=== PATIENT | female | born 1975 | race Caucasian/White ===

== ENCOUNTER → 2016-09-11 | Outpatient (CLI) | payer OTHER ==
--- NOTE | 2016-09-13 13:15 | MM ---
Reason for exam: screening (asymptomatic). Last mammogram was performed 1 year ago. Physical Findings: A clinical breast exam by your physician is recommended on an annual basis and results should be correlated with mammographic findings. MG 3D Screening Mammo W/Cad Bilateral CC and MLO view(s) were taken. Prior study comparison: September 15, 2015, bilateral MG screening mammo w CAD. October 23, 2012, bilateral digital screening mammo w/CAD. The breast tissue is heterogeneously dense. This may lower the sensitivity of mammography. No significant changes when compared with prior studies. ASSESSMENT: Negative, BI-RAD 1 RECOMMENDATION: Routine screening mammogram of both breasts in 1 year.
== END | disposition home or self-care (01) ==
LOC: RADMAMWWP 16:59
PROVIDERS: ATTEND Family Medicine
DX: Z12.31 Encounter for screening mammogram for malignant neoplasm of breast (principal)
CPT/HCPCS: 77063; G0202

== ENCOUNTER → 2017-10-20 | Outpatient (CLI) | payer OTHER ==
--- NOTE | 2017-10-20 14:40 | MM ---
Reason for exam: screening (asymptomatic). Last mammogram was performed 1 year and 1 month ago. Physical Findings: A clinical breast exam by your physician is recommended on an annual basis and results should be correlated with mammographic findings. MG 3D Screening Mammo W/Cad Bilateral CC and MLO view(s) were taken. Prior study comparison: September 11, 2016, bilateral MG 3d screening mammo w/cad. September 15, 2015, bilateral MG screening mammo w CAD. The breast tissue is heterogeneously dense. This may lower the sensitivity of mammography. There are typically benign round calcifications in both breasts. There is no discrete abnormality. ASSESSMENT: Benign, BI-RAD 2 RECOMMENDATION: Routine screening mammogram of both breasts in 1 year.
== END | disposition home or self-care (01) ==
LOC: RADMAMWWP 08:52
PROVIDERS: ATTEND Family Medicine
DX: Z12.31 Encounter for screening mammogram for malignant neoplasm of breast (principal)
CPT/HCPCS: 77063; 77067

== ENCOUNTER → 2017-12-04 | Outpatient (CLI) | payer OTHER ==
--- NOTE | 2017-12-04 14:34 | CONS ---
CONSULTATION DATE OF SERVICE: 12/04/2017 42-year-old lady has been evaluated in Sleep Center for significant excessive daytime sleepiness. HISTORY OF PRESENT ILLNESS/SLEEP WAKE EVALUATION: SLEEP SCHEDULE: Patient's usual sleep schedule on working days from 10 p.m. to 6, 6:15 a.m. and on weekends from around 11 p.m. until 8 a.m. FALLING ASLEEP: Sometimes it takes more than 30 minutes for patient to fall asleep. She has TV set in bedroom. DURING SLEEP: She prefers to sleep on the stomach position. In that position, according to her , she does not snore. Sometimes while taking naps, the patient remembers having snoring. The patient has positive history of restless leg symptoms. DURING THE DAY SLEEP/WAKE EVALUATION: She has several episodes of hypnogogical hallucinations and often episodes of sleep of paralysis, especially during naps. Positive history of vivid dreams during naps. No history of cataplexy. Usually she is taking 1-2 naps a day during and afternoon time and does not feel much refreshed after naps. [place] Sleepiness Scale significantly increased to 16. PAST MEDICAL HISTORY: Positive for Graves disease with hysterectomy and subsequent hypothyroidism, hypertension. MEDICATIONS: Aspirin, metoprolol, lisinopril, thyroxine. SOCIAL HISTORY: Positive for smoking for about 20 pack years, quit about 3 years ago. Alcohol consumption rarely. FAMILY HISTORY: Sleep apnea, acid reflux, diabetes, thyroid problems. REVIEW OF SYSTEMS: Multiple awakenings from sleep up to 2-5 times with up to 2 episodes of nocturia. PHYSICAL EXAM: 42-year-old lady without distress. BP 116/49, HR 72, RR 16, height weight 170.6, BMI 27.41, temperature 98.0, oxygen saturation room air 100%. HEENT: Oropharynx normal position of soft palate vertically, but short distance between soft palate and posterior pharyngeal wall. Neck 14 inches in circumference. Neck Supple, no JVD. Thyroid is not palpable. LUNGS Clear to percussion and to auscultation. Good air exchange. No wheezing or rhonchi. HEART S1, S2 regular. No murmurs, gallops, or rubs. ABDOMEN Soft and nontender. Bowel sounds are present. No organomegaly appreciated. EXTREMITIES No clubbing or cyanosis. PULVERIZER OPERATOR Awake, alert, and oriented X3. Cranial nerves 2 to 7 intact. There is no fasciculation or atrophy. noted. No focal deficits observed. IMPRESSION: 1. Significant excessive daytime sleepiness. [place] Sleepiness Scale increased to 16. Vivid dreams, positive history of hypnagogic hallucinations and sleep of paralysis. Differential diagnosis includes narcolepsy. 2. Short distance between soft palate and posterior pharyngeal wall although normal position of the soft palate in vertical dimension. Rule out obstructive sleep apnea. 3. History of restless legs syndrome. 4. Hypertension. 5. Hypothyroidism after thyroidectomy for Grave's disease. PLAN: 1. Polysomnography with the following multiple sleep latency test for objective evaluation for symptoms of excessive daytime sleepiness. 2. CPAP/BiPAP titration if sleep study confirms obstructive sleep apnea-hypopnea syndrome. 3. Preferable position during sleep on the side. 4. No driving if patient feels any sleepiness. 5. I will see patient for follow up visit to explain results of testing and following plan. Thank you very much for referring this patient for consultation. Sincerely, Alek Ramirez MD, PhD, FAASM Diplomat of [employer] Silo Man [facility] [place] MMODL / IJN: [id number] /
== END | disposition home or self-care (01) ==
LOC: SLEEP 13:08
PROVIDERS: ATTEND Internal Medicine
DX: G47.10 Hypersomnia, unspecified (principal); R44.2 Other hallucinations; G25.81 Restless legs syndrome; I10 Essential (primary) hypertension; E89.0 Postprocedural hypothyroidism; E05.00 Thyrotoxicosis with diffuse goiter without thyrotoxic crisis or storm; Z87.891 Personal history of nicotine dependence; Z79.899 Other long term (current) drug therapy; Z79.82 Long term (current) use of aspirin
CPT/HCPCS: 99211

== ENCOUNTER → 2018-02-19 | Outpatient (CLI) | payer OTHER ==
--- NOTE | 2018-02-19 19:27 | PN ---
PROGRESS NOTE DATE OF SERVICE: 02/19/2018 42-year-old lady has been followed in Sleep Center to discuss results of sleep studies and following plan. The patient continued to feel symptoms of significant excessive daytime sleepiness. [place] Sleepiness Scale today is increased to 17. I discussed with the patient results of recent sleep studies. Polysomnogram did not show any significant respiratory abnormalities. Total apnea-hypopnea index was 1.9 with lowest oxygen level 89.4. No periodic limb movements have been documented. The patient slept for that night for 6 hours and 23 minutes. Multiple sleep latency test done on the following day consisted from 5 naps. The patient fell asleep on all naps. Mean sleep latency was 6.4 minutes, which is significantly short. No sleep onset REM periods have been documented. MEDICATIONS: Metoprolol, lisinopril, thyroxine, aspirin. PHYSICAL EXAM: Patient in no distress. BP 108/58, HR 64, RR 14, weight 177.6, temperature 98.1. HEENT PERRLA, EOMI, evaluation of oropharynx showed tongue protrudes midline. Neck Supple, no JVD. Thyroid is not palpable. LUNGS Clear to percussion and to auscultation. Good air exchange. No wheezing or rhonchi. HEART S1, S2 regular. No murmurs, gallops, or rubs. ABDOMEN Soft and nontender. Bowel sounds are present. No organomegaly appreciated. EXTREMITIES No clubbing or cyanosis. DIRECTOR OF GRANTS Awake, alert, and oriented X3. Cranial nerves 2 to 7 intact. There is no fasciculation or atrophy. noted. No focal deficits observed. IMPRESSION: 1. No significant respiratory abnormalities during sleep studies. 2. Multiple sleep latency test confirmed sleepiness. Mean sleep latency only 6.4 minutes. No sleep onset REM periods have been documented. Differential diagnosis includes narcolepsy and idiopathic hypersomnia, positive history of occasional hypnagogical hallucinations so most reliable is diagnosis of narcolepsy. 3. History of heart attack at age of 26. 4. Status post thyroidectomy for Graves disease. Now patient on replacement with thyroid hormone medications. PLAN: 1. I discussed with the patient possibility to start her on stimulants. I would suggest the lowest dose of methylphenidate like 5 mg 1-2 times a day. 2. Patient will discuss that with her manufacturing area manager. 3. Sleep hygiene with regular time in bed for at least 8 hours. 4. No driving if feeling sleepiness. Thank you very much for allowing me to participate in management of your patient. Sincerely, Alek Ramirez MD, PhD, FAASM Diplomat of [employer] Medicine Supervisor [place] [facility] [place] XAVIER / LISA: [id number] /
== END | disposition home or self-care (01) ==
LOC: SLEEP 16:34
PROVIDERS: ATTEND Internal Medicine
DX: G47.10 Hypersomnia, unspecified (principal); I25.2 Old myocardial infarction; E05.00 Thyrotoxicosis with diffuse goiter without thyrotoxic crisis or storm; Z90.89 Acquired absence of other organs; Z79.899 Other long term (current) drug therapy; Z79.82 Long term (current) use of aspirin

== ENCOUNTER → 2018-05-14 | Outpatient (CLI) | payer OTHER ==
--- NOTE | 2018-05-14 17:34 | PN ---
PROGRESS NOTE DATE OF SERVICE: 05/14/2018 42-year-old lady has been followed in Sleep Center for treatment of narcolepsy. She was started on treatment with Ritalin 5 mg 2 times a day. On this dose of medication, she did not feel any difference in her feeling at all, continued to have sleepiness. We tried 10 mg of Ritalin in the morning. With this dose, the patient did not feel any difference during the day, the patient continued sleepiness after taking medication and at lunch time she is ready to take for another nap. No side effects. No increasing heart rate. No increasing blood pressure. [place] Sleepiness Scale today is 17. MEDICATIONS: Metoprolol, lisinopril, thyroxine, aspirin. PHYSICAL EXAM: Patient in no distress. BP 95/63, HR 73, RR 16, height 5 feet 6 inches, weight 179.8, body mass index 29.0, temperature 97.8, oxygen saturation at room air 98%. HEENT: PERRLA, EOMI, evaluation of oropharynx showed tongue protrudes midline. NECK :Supple, no JVD. Thyroid is not palpable. LUNGS: Clear to percussion and to auscultation. Good air exchange. No wheezing or rhonchi. HEART: S1, S2 regular. No murmurs, gallops, or rubs. ABDOMEN: Soft and nontender. Bowel sounds are present. No organomegaly appreciated. EXTREMITIES: No clubbing or cyanosis. DEAN OF BOYS: Awake, alert, and oriented X3. Cranial nerves 2 to 7 intact. There is no fasciculation or atrophy. noted. No focal deficits observed. IMPRESSION: 1. Narcolepsy. 2. History of heart attack at age 26. 3. Status post thyroidectomy for Grave' disease. The patient on thyroid medication replacements. PLAN: 1. Patient will try Ritalin 15 mg in the morning to check if she responds on this dose. 2. Sleep hygiene with regular time in bed for at least 8 hours. 3. No driving if feeling sleepiness. 4. Daytime naps permitted. Thank you very much for allowing me to participate in management of your patient. Sincerely, Alek Ramirez MD, PhD, FAASM Diplomat of [employer] Board of Internal Medicine Export Documents Clerk of [facility] [place] MMODL / RENETTAN: [id number] /
== END ==
LOC: SLEEP 16:03
PROVIDERS: ATTEND Internal Medicine
DX: G47.419 Narcolepsy without cataplexy (principal); E89.0 Postprocedural hypothyroidism; I50.9 Heart failure, unspecified; Z79.899 Other long term (current) drug therapy; Z79.82 Long term (current) use of aspirin

== ENCOUNTER → 2018-07-23 | Outpatient (CLI) | payer OTHER ==
--- NOTE | 2018-07-23 17:43 | PN ---
PROGRESS NOTE DATE OF SERVICE: 07/23/2018 This patient is a 42-year-old lady who has been followed in Sleep Center for treatment of narcolepsy. At present the patient is on treatment with Ritalin 15 mg in the morning, and with this regimen the patient feels better, more alert, especially in the first half of the day. During the second part of the day she still feels sleepiness. [place] Sleepiness Scale today is 12. No side effects of medications. No tachycardia. No episodes of anxiety. MEDICATIONS: 1. Metoprolol. 2. Lisinopril. 3. Thyroxine. 4. Aspirin. 5. Ritalin. PHYSICAL EXAMINATION: GENERAL: A pleasant patient in no distress. VITAL SIGNS: BP 108/63, HR 65, RR 16, height 5 feet 6 inches, weight 174.4 pounds, body mass index 28, temperature 98.5, oxygen saturation at room air 100%. HEENT: PERRLA, EOMI. Evaluation of oropharynx showed tongue protrudes midline. NECK: Supple. No JVD. Thyroid is not palpable. LUNGS: Clear to percussion and to auscultation. Good air exchange. No wheezing or rhonchi. HEART: S1, S2 regular. No murmurs, gallops or rubs. ABDOMEN: Soft and nontender. Bowel sounds are present. No organomegaly. EXTREMITIES: No clubbing or cyanosis. COMBATANT DIVER OFFICER: Awake, alert, and oriented X3. Cranial nerves 2 to 7 intact. There is no fasciculation or atrophy. noted. No focal deficits observed. IMPRESSION: 1. Narcolepsy without cataplexy. Alertness improved on treatment with Ritalin. 2. History of heart attack at age 26. 3. Status post thyroidectomy for Graves disease; subsequently hypothyroidism, on thyroid replacement therapy. PLAN: 1. Patient will continue to take Ritalin 15 mg in the morning. We will add a dose of Ritalin in the afternoon, starting from 5 mg, and then we will increase it if necessary. 2. Sleep hygiene with regular time in bed for at least 7-1/2 or 8 hours. 3. No driving if feeling any sleepiness. 4. Daytime naps permitted. Thank you very much for allowing me to participate in the management of your patient. Sincerely, Alek Ramirez MD, PhD, FAASM Diplomat of [employer] Specialties [employer] Board of Internal Medicine Pump Servicer [facility] [place] MMKALE / RENETTAN: [id number] /
== END | disposition home or self-care (01) ==
LOC: SLEEP 15:51
PROVIDERS: ATTEND Internal Medicine
DX: G47.419 Narcolepsy without cataplexy (principal); I25.2 Old myocardial infarction; E89.0 Postprocedural hypothyroidism; Z79.82 Long term (current) use of aspirin; Z79.899 Other long term (current) drug therapy

== ENCOUNTER → 2018-11-10 | Outpatient (CLI) | payer OTHER ==
--- NOTE | 2018-11-11 09:58 | MM ---
Reason for exam: screening (asymptomatic). Last mammogram was performed 1 year and 1 month ago. Physical Findings: A clinical breast exam by your physician is recommended on an annual basis and results should be correlated with mammographic findings. MG 3D Screening Mammo W/Cad Bilateral CC and MLO view(s) were taken. Prior study comparison: October 20, 2017, bilateral MG 3d screening mammo w/cad. September 11, 2016, bilateral MG 3d screening mammo w/cad. The breast tissue is heterogeneously dense. This may lower the sensitivity of mammography. There is no discrete abnormality. No significant changes when compared with prior studies. ASSESSMENT: Negative, BI-RAD 1 RECOMMENDATION: Routine screening mammogram of both breasts in 1 year.
== END | disposition home or self-care (01) ==
LOC: RADMAMWWP 11:14
PROVIDERS: ATTEND Family Medicine
DX: Z12.31 Encounter for screening mammogram for malignant neoplasm of breast (principal)
CPT/HCPCS: 77063; 77067

== ENCOUNTER → 2019-02-11 | Outpatient (CLI) | payer OTHER ==
--- NOTE | 2019-02-11 18:56 | PN ---
PROGRESS NOTE DATE OF SERVICE: 02/11/2019 This patient is a 43-year-old lady who has been followed in the sleep center for treatment of narcolepsy. The patient continues to take her medication. At present she is on Adderall; before she took 50 mg in the morning and 5 mg in the afternoon. At present she is taking 20 mg in the morning, and with this regimen she feels more comfortable and feels well most of the day. She takes medication around 8 a.m. and she may start to feel some sleepiness after 4 p.m., when she is already out of work. [place] Sleepiness Scale today is 8, which is in normal range. No side effect of medications. No episodes of hypertension. No episodes of tachycardia or palpitations. MEDICATIONS: 1. Metoprolol. 2. Lisinopril. 3. Aspirin. 4. Thyroid supplement. 5. Synthroid. 6. Adderall. PHYSICAL EXAMINATION: GENERAL: A pleasant patient in no distress. VITAL SIGNS: BP 192/55, HR 56, RR 16, height 5 feet 6 inches, weight 157, body mass index 25.3, temperature 98.1, oxygen saturation at room air 98%. HEENT: PERRLA, EOMI. Evaluation of oropharynx showed tongue protrudes midline. NECK: Supple. No JVD. Thyroid is not palpable. LUNGS: Clear to percussion and to auscultation. Good air exchange. No wheezing or rhonchi. HEART: S1, S2 regular. No murmurs, gallops or rubs. ABDOMEN: Soft. No tenderness. EXTREMITIES: No clubbing or cyanosis. ADMITTING CLERK: Awake, alert, and oriented X3. Cranial nerves 2 to 7 intact. There is no fasciculation or atrophy. noted. No focal deficits observed. IMPRESSION: 1. Narcolepsy without cataplexy, controlled with Adderall 20 mg once a day in the morning. 2. History of heart attack at age of 26. 3. Status post thyroidectomy for Graves' disease, on replacement therapy with Synthroid. PLAN: 1. Patient will continue treatment with Adderall 20 mg once a day in the morning. 2. Sleep hygiene with regular time in bed for at least 8 hours. 3. Precautions related to driving. No driving if feeling any sleepiness. 4. Daytime naps permitted. Thank you very much for allowing me to participate in the management of your patient. Sincerely, Alek Ramirez MD, PhD, FAASM Diplomat of [employer] Specialties [employer] Board of Internal Medicine Cost Estimating Engineer of [facility] [place] XAVIER / LISA: [id number] /
== END | disposition home or self-care (01) ==
LOC: SLEEP 16:15
PROVIDERS: ATTEND Internal Medicine
DX: G47.419 Narcolepsy without cataplexy (principal); E89.0 Postprocedural hypothyroidism; Z86.79 Personal history of other diseases of the circulatory system; Z79.82 Long term (current) use of aspirin; Z79.899 Other long term (current) drug therapy

== ENCOUNTER → 2020-06-08 | Outpatient (CLI) | payer OTHER ==
--- NOTE | 2020-06-09 14:13 | MM ---
Reason for exam: screening (asymptomatic). Last mammogram was performed 1 year and 7 months ago. History: Taking progesterone beginning at age 42. Physical Findings: A clinical breast exam by your physician is recommended on an annual basis and results should be correlated with mammographic findings. MG 3D Screening Mammo W/Cad Bilateral CC and MLO view(s) were taken. Prior study comparison: November 10, 2018, bilateral MG 3d screening mammo w/cad. October 20, 2017, bilateral MG 3d screening mammo w/cad. The breast tissue is extremely dense which could obscure a lesion on mammography. No significant changes when compared with prior studies. ASSESSMENT: Benign, BI-RAD 2 RECOMMENDATION: Routine screening mammogram of both breasts in 1 year.
== END | disposition home or self-care (01) ==
LOC: RADMAMWWP 07:37
PROVIDERS: ATTEND Obstetrics & Gynecology
DX: Z12.31 Encounter for screening mammogram for malignant neoplasm of breast (principal)
CPT/HCPCS: 77063; 77067

== ENCOUNTER → 2020-11-29 | Outpatient (CLI) | payer BC, OTHER ==
--- NOTE | 2020-11-30 09:15 | SFUN ---
SLEEP CENTER FOLLOW UP NOTE DATE OF SERVICE: 45-year-old lady has been followed in Sleep Center for treatment of narcolepsy. The patient continues to takes her Adderall 20 mg in the morning and with this regimen, she is able to control her daytime sleepiness. [place] Sleepiness Scale today increased to 13. No any side effects of medications. No episodes of tachycardia, palpitations. MEDICATIONS: Aspirin 81 mg once a day, lisinopril 5 mg once a day, metoprolol 25 mg twice a day. Nifedipine 30 mg once a day, levothyroxine 88 mcg once a day, Adderall 20 mg once a day, vitamin D3. PHYSICAL EXAMINATION: GENERAL: Patient in no distress. BP 98/47, HR 54, RR 15, height 5 and 6 inches, weight 147.6, temperature 97.7, oxygen saturation at room air 99%. HEENT: PERRLA, EOMI, evaluation of oropharynx showed tongue protrudes midline. NECK: Supple, no JVD. Thyroid is not palpable. LUNGS: Clear to percussion and to auscultation. Good air exchange. No wheezing or rhonchi. HEART: S1, S2 regular. No murmurs, gallops, or rubs. ABDOMEN: Soft and nontender. Bowel sounds are present. No organomegaly appreciated. EXTREMITIES: No clubbing or cyanosis. OWNER CONSULTING ENGINEER: Awake, alert, and oriented X3. Cranial nerves 2 to 7 intact. There is no fasciculation or atrophy. noted. No focal deficits observed. IMPRESSION: 1. Narcolepsy without cataplexy, controlled with Adderall 20 mg once a day in the morning. 2. History of heart attack at age of 26. 3. Status post thyroidectomy for Graves disease on replacement therapy with Synthroid. PLAN: 1. Patient will continue to take Adderall 20 mg 1 tab once a day in the morning. 2. Sleep hygiene with regular time in bed for at least 8 hours. 3. Precautions related to driving. No driving if feels any sleepiness. 4. Patient have been permitted to have daytime naps. Thank you very much for allowing me to participate in management of your patient. Sincerely, Alek Ramirez MD, PhD, FAASM Diplomat of [employer] Sleep Medicine Board of [employer] of Internal Medicine Associate Professor Of Art History of [facility] [place] MMODL / IJN: [id number] /

== ENCOUNTER → 2021-06-29 | Outpatient (CLI) | payer BC ==
--- NOTE | 2021-07-03 11:17 | MM ---
Reason for exam: screening (asymptomatic). Last mammogram was performed 1 year and 1 month ago. History: Taking progesterone for 2 years beginning at age 42. Physical Findings: A clinical breast exam by your physician is recommended on an annual basis and results should be correlated with mammographic findings. MG 3D Screening Mammo W/Cad Bilateral CC and MLO view(s) were taken. Prior study comparison: June 08, 2020, bilateral MG 3d screening mammo w/cad. November 10, 2018, bilateral MG 3d screening mammo w/cad. The breast tissue is extremely dense which could obscure a lesion on mammography. Finding: There are increased number of coarse heterogeneous, grouped/clustered calcifications in the lower quadrant, anterior position of the left breast on MLO view. New finding since June 08, 2020 and November 10, 2018. ASSESSMENT: Incomplete: need additional imaging evaluation, BI-RAD 0 RECOMMENDATION: Special view mammogram of the left breast. [facility] will attempt to contact patient to return for supplemental views.
== END | disposition home or self-care (01) ==
LOC: RADMAMWWP 07:02
PROVIDERS: ATTEND Obstetrics & Gynecology
DX: Z12.31 Encounter for screening mammogram for malignant neoplasm of breast (principal)
CPT/HCPCS: 77063; 77067

== ENCOUNTER → 2021-07-11 | Outpatient (CLI) | payer BC ==
--- NOTE | 2021-07-11 10:26 | MM ---
Reason for exam: additional evaluation requested from abnormal screening. Last mammogram was performed less than 1 month ago. History: Taking progesterone for 3 years beginning at age 42. Physical Findings: A clinical breast exam by your physician is recommended on an annual basis and results should be correlated with mammographic findings. MG 3D Work Up W/Cad LT ML with magnification, CC with magnification, and ML view(s) were taken of the left breast. Prior study comparison: June 29, 2021, bilateral MG 3d screening mammo w/cad. June 08, 2020, bilateral MG 3d screening mammo w/cad. The breast tissue is heterogeneously dense. This may lower the sensitivity of mammography. There are indeterminate grouped microcalcifications in the left breast. Biopsy recommended. This finding is changed when compared with previous exams. These results were verbally communicated with the patient and result sheet given to the patient on 07/11/21. ASSESSMENT: Suspicious, BI-RAD 4 RECOMMENDATION: Stereotactic core biopsy of the left breast. Called Dr. Tejada's office with mammographic findings and has scheduled an appointment for the patient for 08/02/21 at 7:[address] Romo. Biopsy scheduled for 08/02/21 at 8:00. PRELIMINARY REPORT CALLED AND FAXED TO DR. ROMO ON 07/11/21.
== END | disposition home or self-care (01) ==
LOC: RADMAMWWP 09:08
PROVIDERS: ATTEND Obstetrics & Gynecology
DX: R92.8 Other abnormal and inconclusive findings on diagnostic imaging of breast (principal)
CPT/HCPCS: 77061; 77065

== ENCOUNTER → 2021-08-02 | Outpatient (CLI) | payer BC ==
--- NOTE | 2021-08-02 08:14 | P.GSHP ---
History of Present Illness H&P Date: 08/02/21 Chief Complaint: abnormal left breast mammogram Linda is a 45 year old white female seen in consultation for Dr. Tejada regarding a mammographic abnormality in her left breast in the lower mid portion. These were found on a routine mammogram. The patient does not feel any lesions of concern in either breast. She is not complaining of any nipple discharge or skin changes. She's never had any surgery on her breast in the past. Caffeine: rare nicotine: 6 cigarettes/day; intermittent since 18 hormones: progesterone 2 years; 14th through 28 day of cycle chocolate: daily Family history: father: liver cancer not an alcoholic/no history of hepatitis maternal aunt: ovarian cancer Hormonal History: menarche: 11 A1, age at first : 24, breast fed: no periods regular progesterone: 2 years BCP: none Surgical History: C section thyroid resection Graves disease Medical History: HI at 26 11 days postpastum/ a blood clot from delivery hypothyroid discoid lupus Social History: nicotine: 6/day alcohol: none drugs: none - Constitutional Constitutional: Denies chills, Denies fever - EENT Eyes: denies blurred vision, denies pain Ears: deny: decreased hearing, tinnitus Ears, nose, mouth and throat: Denies headache, Denies sore throat - Breasts Breasts: bilateral: as per HPI - Cardiovascular Comment: HI Cardiovascular: Reports as per HPI, Denies chest pain, Denies shortness of breath - Respiratory Comment: smoker - Gastrointestinal Gastrointestinal: Denies abdominal pain, Denies diarrhea, Denies nausea, Denies vomiting - Genitourinary (Female) Genitourinary: Denies dysuria, Denies hematuria - Menstruation Menstruation: Reports period normal - Musculoskeletal Musculoskeletal: Denies myalgias - Integumentary Integumentary: Denies pruritus, Denies rash - Neurological Neurological: Denies numbness, Denies weakness - Psychiatric Psychiatric: Denies anxiety, Denies depression - Endocrine Endocrine: Denies fatigue, Denies weight change - Hematologic/Lymphatic Comment: aspirin daily 81 mg - Allergic/Immunologic Allergic/Immunologic: Reports as per HPI Past Medical History Past Medical History: Myocardial Infarction (HI), Thyroid Disorder Additional Past Medical History / Comment(s): mi 20 years ago, graves-thyroid removed 6 years ago Last Myocardial Infarction Date:: 1999approx History of Any Multi-Drug Resistant Organisms: None Reported Past Surgical History: Section Additional Past Surgical History / Comment(s): thyroidectomy 6 years ago Past Anesthesia/Blood Transfusion Reactions: No Reported Reaction Past Psychological History: No Psychological Hx Reported Smoking Status: Current every day smoker Past Drug Use History: None Reported - Past Family History Father Family Medical History: Cancer Additional Family Medical History / Comment(s): liver Medications and Allergies Home Medications Medication Instructions Recorded Confirmed Type Aspirin [Adult Low Dose Aspirin EC] 81 mg PO DAILY 07/23/21 08/02/21 History Hydroxychloroquine Sulfate 200 mg PO BID 07/23/21 08/02/21 History Levothyroxine Sodium 88 mcg PO DAILY 07/23/21 08/02/21 History Metoprolol Tartrate [Lopressor] 25 mg PO BID 07/23/21 08/02/21 History lisinopriL [Zestril] 5 mg PO DAILY 07/23/21 08/02/21 History Allergies Allergy/AdvReac Type Severity Reaction Status Date / Time No Known Allergies Allergy Verified 08/02/21 07:22 Surgical - Exam - General well developed, well nourished, no distress - Eyes normal ocular movement - ENT no hearing loss, no congestion - Neck trachea midline - Respiratory normal respiratory effort, clear to auscultation - Cardiovascular Rhythm: regular Heart Sounds: normal: S1, S2 - Abdomen Abdomen: soft, non tender, no guarding, no rigid, no rebound - Integumentary normal turgor - Neurologic no disoriented, no combative - Musculoskeletal normal gait, normal posture - Psychiatric oriented to time, oriented to person, oriented to place, speech is normal, memory intact Breast Exam: BRA: 36B inspection: Bilateral grade 2 ptosis Palpation: Right breast: Multiple positional exam fibrocystic changes no dominant masses or nodules of concern Right axilla: No adenopathy of concern left breast: Multiple positional exam fibrocystic changes no dominant masses or nodules of concern Left axilla: No adenopathy of concern Results Mammogram reviewed personally with Dr. Painter; microcalcifications of concern le ft breast plan CC from below approach for stereotactic core biopsy Assessment and Plan Assessment: Impression: 1. Microcalcifications of concern left breast 2. Prior myocardial infarction 3. Hypothyroid 4. Discoid lupus Plan: 1. Stereotactic core biopsy left breast 2. Follow-up after stereotactic core biopsy Risk and benefits of the procedure discussed with the patient. Risks include but are not limited to bleeding, infection, reaction to the anesthetic. The possibility of being unable to identify the lesion on the applied exercise physiologist film was discussed which could necessitate aborting the procedure. Alternatives such as watchful waiting or resection in the operating room were discussed but not recommended. The patient understands and wishes to proceed. Cc: Dr. Tejada
== END ==
LOC: WWCWWP 07:06
PROVIDERS: ATTEND Surgery
DX: R92.0 Mammographic microcalcification found on diagnostic imaging of breast (principal); I25.2 Old myocardial infarction; E03.9 Hypothyroidism, unspecified; L93.0 Discoid lupus erythematosus; F17.210 Nicotine dependence, cigarettes, uncomplicated; Z79.890 Hormone replacement therapy

== ENCOUNTER → 2021-08-02 | Day surgery (SDC) | payer BC ==
[2021-08-02 07:29] VITALS: RESP 16
--- NOTE | 2021-08-02 09:20 | P.PCN ---
Date of Procedure: 08/02/21 Preoperative Diagnosis: Microcalcifications of concern left breast lower mid breast Postoperative Diagnosis: Same Procedure(s) Performed: Stereotactic core biopsy left breast Anesthesia: local Surgeon: Brianne Romo Pathology: other (Breast tissue/microcalcifications noted in the radiographic specimen) Condition: stable Disposition: same day Indications for Procedure: Microcalcifications of concern left breast Operative Findings: Radiographic specimen reveals microcalcifications Description of Procedure: The patient was brought to the stereotactic core biopsy room. She was positioned prone on the low rad table. A director of instructional technology film was obtained. The microcalcifications of concern were identified and targeted. The breast was prepped using Betadine. 20 mL of 1% lidocaine 10 of which had epinephrine were used to anesthetize the area of concern. A 9-gauge vacuum-assisted core rotating biopsy needle was driven to the correct coordinates. A prefire film revealed the needle to be in the correct location. The needle was fired. A post-fire film revealed the needle to be in the correct location. 15 15 Core biopsy specimens were obtained. Radiograph of the specimen revealed what was felt to be several small calcifications but we were not satisfied the area had been adequately sampled. The lesion was retargeted. Additional specimens were obtained. Radiograph of the specimens likewise did not reveal with satisfaction the calcifications of concern. For third time the lesion was retargeted. At this time 15 additional core biopsy specimens were obtained. Radiograph of the specimen revealed definitive calcifications felt to be those of concern. A secure bj Top-Hat clip was placed. The clip appeared to be in the correct location. The patient tolerated the procedure in stable condition. All biopsies were in the same vicinity and additional local anesthetic was not necessary. The specimen was sent to pathology. The patient will follow-up with Dr. Dunaway in 1 week.
[2021-08-02 09:31] VITALS: BP 116/81; PULSE 78; TEMP 98.1
--- NOTE | 2021-08-02 11:57 | MM ---
The patient was brought to the stereotactic core biopsy room. She was positioned prone on the low rad table. A muffler mechanic film was obtained. The microcalcifications of concern were identified and targeted. The breast was prepped using Betadine. 20 mL of 1% lidocaine 10 of which had epinephrine were used to anesthetize the area of concern. A 9-gauge vacuum-assisted core rotating biopsy needle was driven to the correct coordinates. A prefire film revealed the needle to be in the correct location. The needle was fired. A post-fire film revealed the needle to be in the correct location. 15 15 Core biopsy specimens were obtained. Radiograph of the specimen revealed what was felt to be several small calcifications but we were not satisfied the area had been adequately sampled. The lesion was retargeted. Additional specimens were obtained. Radiograph of the specimens likewise did not reveal with satisfaction the calcifications of concern. For third time the lesion was retargeted. At this time 15 additional core biopsy specimens were obtained. Radiograph of the specimen revealed definitive calcifications felt to be those of concern. A secure bj Top-Hat clip was placed. The clip appeared to be in the correct location. The patient tolerated the procedure in stable condition. All biopsies were in the same vicinity and additional local anesthetic was not necessary. The specimen was sent to pathology. The patient will follow-up with Dr. Dunaway in 1 week. Post procedure radiograph revealed the clip to be in the correct location. RENETTA
== END ==
LOC: RADMAMWWP 07:07
PROVIDERS: ATTEND Surgery
DX: R92.8 Other abnormal and inconclusive findings on diagnostic imaging of breast (principal); N60.12 Diffuse cystic mastopathy of left breast; N60.22 Fibroadenosis of left breast; N62 Hypertrophy of breast; R92.0 Mammographic microcalcification found on diagnostic imaging of breast
CPT/HCPCS: 88305; 19081; A4648; J2001

== ENCOUNTER → 2021-10-18 | Outpatient (CLI) | payer BC ==
[2021-10-18 08:58] VITALS: BP 92/57; PULSE 67; RESP 17; TEMP 98.4
--- NOTE | 2021-10-18 09:09 | P.PN ---
Subjective Progress Note Date: 10/18/21 Principal diagnosis: radial scar left breast radial scar left breast Linda is a 45 year old white female seen in consultation for Dr. Tejada regarding a mammographic abnormality in her left breast in the lower mid portion. These were found on a routine mammogram. The patient does not feel any lesions of concern in either breast. She is not complaining of any nipple discharge or skin changes. She's never had any surgery on her breast in the past. The patient on 08-02-21 underwent a left breast sterotactic core biopsy. Pathology revealed a radial scar. The patient tolerated the procedure in stable condition. Caffeine: rare nicotine: 6 cigarettes/day; intermittent since 18 hormones: progesterone 2 years; 14th through 28th day of cycle chocolate: daily Family history: father: liver cancer not an alcoholic/no history of hepatitis maternal aunt: ovarian cancer Hormonal History: menarche: 11 A1, age at first : 24, breast fed: no periods regular progesterone: 2 years BCP: none Surgical History: C section thyroid resection Graves disease Medical History: HI at 26 11 days postpastum/ a blood clot from delivery hypothyroid discoid lupus Social History: nicotine: 6/day alcohol: none drugs: none - Constitutional Constitutional: Denies chills, Denies fever - EENT Eyes: denies blurred vision, denies pain Ears: deny: decreased hearing, tinnitus Ears, nose, mouth and throat: Denies headache, Denies sore throat - Breasts Breasts: bilateral: as per HPI - Cardiovascular Comment: HI Cardiovascular: Reports as per HPI, Denies chest pain, Denies shortness of breath - Respiratory Comment: smoker - Gastrointestinal Gastrointestinal: Denies abdominal pain, Denies diarrhea, Denies nausea, Denies vomiting - Genitourinary (Female) Genitourinary: Denies dysuria, Denies hematuria - Menstruation Menstruation: Reports period normal - Musculoskeletal Musculoskeletal: Denies myalgias - Integumentary Integumentary: Denies pruritus, Denies rash - Neurological Neurological: Denies numbness, Denies weakness - Psychiatric Psychiatric: Denies anxiety, Denies depression - Endocrine Endocrine: Denies fatigue, Denies weight change - Hematologic/Lymphatic Comment: aspirin daily 81 mg - Allergic/Immunologic Allergic/Immunologic: Reports as per HPI Objective - Vital Signs Vital signs: Vital Signs Temp 98.4 F 10/18/21 08:55 Pulse 67 10/18/21 08:55 Resp 17 10/18/21 08:55 BP 92/57 10/18/21 08:55 Pulse Ox 98 10/18/21 08:55 FiO2 Intake & Output 10/17/21 10/18/21 10/18/21 18:59 06:59 18:59 Weight 64.864 kg - Exam BMI 23.1 - Constitutional General appearance: Present: cooperative - EENT Eyes: Present: EOMI ENT: Present: hearing grossly normal - Neck Neck: Present: normal ROM - Respiratory Respiratory: bilateral: CTA - Cardiovascular Rhythm: regular Heart sounds: normal: S1, S2 - Gastrointestinal General gastrointestinal: Present: soft - Integumentary Integumentary: Present: normal turgor - Musculoskeletal Musculoskeletal: Present: gait normal - Psychiatric Psychiatric: Present: A&O x's 3, appropriate affect, intact judgment & insight - Additional findings Additional findings: Breast examination: Left breast biopsy site clean and dry no evidence of infection or hematoma Bowel: 36B Inspection: Bilateral grade 2 ptosis Emanation from prior stereo biopsy Right breast: Multiple positional exam fibrocystic changes no dominant masses or nodules of concern Right axilla: No adenopathy of concern Left breast multiple positional exam fibrocystic changes no dominant masses or nodules of concern Left axilla: No adenopathy of concern Assessment and Plan Assessment: Assessment and Plan Assessment: Impression: 1. Patient status post stereotactic core biopsy left breast/pathology reveals radial scar 2. Prior myocardial infarction (takes one baby aspirin) 3. Hypothyroid 4. Discoid lupus Plan: 1. Needle localization excisional lumpectomy radial scar of the left breast, possible oncoplastic tissue transfer; the patient is not interested in a mastopexy 2. Medical clearance Dr. Merrill 3. Patient is going to hold her progesterone at this time until biopsy results are returned 4. Claudia, and Dr. Dr. Posey Risks and benefits of the procedure discussed with the patient. Risks include but are not limited to bleeding, infection, reaction to the anesthetic. The possibility of sampling which did not represent the specimen as discussed CC: Dr. Merrill, Dr. Tejada, Dr. Posey
== END ==
LOC: WWCWWP 08:48
PROVIDERS: ATTEND Surgery
DX: N64.89 Other specified disorders of breast (principal); E03.9 Hypothyroidism, unspecified; I25.2 Old myocardial infarction; L93.0 Discoid lupus erythematosus; F17.210 Nicotine dependence, cigarettes, uncomplicated

== ENCOUNTER 2021-10-30 11:32 | Day surgery (SDC) | payer BC ==
[2021-10-29 08:29] VITALS: BMI 23.3
[~2021-10-30 11:32] MED LIST: DEXAMETHASONE SOD PHOSPHATE 4 MG/ML 1 ML VIAL IV ONE; HEPARIN SODIUM,PORCINE/PF 5,000 UNIT/0.5 ML SYRINGE SQ PRN; HYDROmorphone 0.5 MG/0.5 ML SYRINGE IVP PRN; LACTATED RINGERS 1,000 ML IV SCH; LIDOCAINE 1% (10MG/ML) FOR IV START INTRADERMA PRN; MIDAZOLAM 2 MG/2 ML VIAL IV PRN; ONDANSETRON 4 MG/2 ML VIAL IVP ONE; Pre Op ABX Message 1 EACH MISC MISCELLANE ONE
[2021-10-30] MEDS ORDERED: LIDOCAINE 1% INJ 10MG/ML (20 ML MDV) SQ ONE (13:42)
--- NOTE | 2021-10-30 16:25 | P.OP ---
Date of Procedure: 10/30/21 Preoperative Diagnosis: Radial scar left breast Postoperative Diagnosis: Same Procedure(s) Performed: Needle localization excisional lumpectomy radial scar Anesthesia: TISHAA Surgeon: Brianne Romo Estimated Blood Loss (ml): 3 IV fluids (ml): 250 Pathology: other (Breast tissue) Condition: stable Disposition: same day Indications for Procedure: Core biopsy revealing radial scar of the left breast Operative Findings: Fibrofatty breast tissue Description of Procedure: Linda is a 46-year-old white female who on core biopsy of the left breast revealed a radial scar. Resection in the operating was recommended. Following needle localization of area of concern in the left breast the patient was brought to the operative suite. Following induction of anesthesia the left breast was prepped and draped in a sterile fashion. An incision was made and carried down to the shaft of the needle. The tissue surrounding this was grasped using an Allis clamp. Circumferential resection of the tissue was performed. The specimen was painted for orientation. The specimen was sent for x-ray which revealed the area of concern had been sampled. The wound was well irrigated. After assured that hemostasis was attained Surgicel and powder form was placed. The deep tissues were closed using 3-0 Vicryl suture. The skin was closed using a 4-0 Ethibond suture. The patient tolerated the procedure in stable condition. All instrument and sponge counts were correct at the end of the case.
--- NOTE | 2021-10-30 16:26 | P.DS ---
Providers Attending physician: Brianne Romo Primary care physician: Oswaldo Merrill Plan - Discharge Summary Discharge Rx Participant: Yes New Discharge Prescriptions: No Action lisinopriL [Zestril] 5 mg PO DAILY Metoprolol Tartrate [Lopressor] 25 mg PO BID Aspirin [Adult Low Dose Aspirin EC] 81 mg PO DAILY Levothyroxine Sodium 88 mcg PO DAILY Magnesium 250 mg PO DAILY Dextroamphetamine/Amphetamine [Adderall] 20 mg PO DAILY Hydroxychloroquine Sulfate 200 mg PO BID Cholecalciferol [Vitamin D3 (25 Mcg = 1000 Iu)] 25 mcg PO DAILY Discharge Medication List Aspirin [Adult Low Dose Aspirin EC] 81 mg PO DAILY 07/23/21 [History] Hydroxychloroquine Sulfate 200 mg PO BID 07/23/21 [History] Levothyroxine Sodium 88 mcg PO DAILY 07/23/21 [History] Metoprolol Tartrate [Lopressor] 25 mg PO BID 07/23/21 [History] lisinopriL [Zestril] 5 mg PO DAILY 07/23/21 [History] Cholecalciferol [Vitamin D3 (25 Mcg = 1000 Iu)] 25 mcg PO DAILY 10/18/21 [History] Dextroamphetamine/Amphetamine [Adderall] 20 mg PO DAILY 10/18/21 [History] Magnesium 250 mg PO DAILY 10/18/21 [History] Follow up Appointment(s)/Referral(s): Brianne Romo MD [STAFF PHYSICIAN] - 11/08/21 6:40 pm Activity/Diet/Wound Care/Special Instructions: do not drive for 24 hours after discharge may shower after 48 hours wear bra at all times Discharge Disposition: HOME SELF-CARE
[2021-10-30 16:43] VITALS: TEMP 96.9
[2021-10-30 16:48] VITALS: RESP 16
[2021-10-30] MEDS ORDERED: ACETAMINOPHEN TAB 500 MG TAB ONE (17:51)
[2021-10-30] MEDS ORDERED: ACETAMINOPHEN TAB 500 MG TAB PO ONE (17:52)
[2021-10-30 18:01] VITALS: BP 108/50; PULSE 51
--- NOTE | 2021-11-09 12:37 | MM ---
EXAM: MG pre op needle loc LT, MG surgical specimen LT DATE OF EXAM: 10/30/2021 COMPARISON: 06/08/2020 Bilateral Screening Mammogram, [facility]. 06/29/2021 Bilateral Screening Mammogram, [facility]. 07/11/2021 Left Diagnostic Mammogram, [facility]. DESCRIPTION: The procedure of needle localization with wire placement and than surgical excision was explained to the patient. Benefits, alternatives, and risks were discussed. An informed consent was then obtained. The shortest pathway for procedure was chosen. Shortest pathway was an inferior approach. The overlying skin was prepped and draped in usual sterile fashion. Lidocaine was used as anesthetic into the skin and subcutaneous tissue up to the level of area of concern. A 5 cm needle was used. It was placed via a inferior approach under mammographic guidance. Subsequent 90 degrees mammogram show the needle to be in satisfactory position relative to the targeted area. At this point, wire was placed and the needle was withdrawn. The wire was fixed to patient's skin. Images were marked for surgeon. The patient tolerated the procedure well without any immediate complication. The patient was kept in the radiology department for short stay after the procedure and then taken to surgery for surgical excision. Targeted clip and wire are identified in specimen mammogram. The patient was kept in hospital for short stay after the procedure and then discharged home in stable condition. Impression: Successful, uncomplicated needle localization with wire placement and surgical excision of site of biopsy-proven radial scar in the left breast, full pathology results to follow. Pathology Results: Benign LEFT BREAST, NEEDLE LOCALIZATION EXCISION: Benign breast with previous biopsy site and fibrocystic changes including moderate usual type ductal hyperplasia. Recommendation Follow up diagnostic mammogram of the left breast in 6 months. RENETTA
--- NOTE | 2021-11-09 12:38 | MM ---
EXAM: MG pre op needle loc LT, MG surgical specimen LT DATE OF EXAM: 10/30/2021 COMPARISON: 06/08/2020 Bilateral Screening Mammogram, [facility]. 06/29/2021 Bilateral Screening Mammogram, [facility]. 07/11/2021 Left Diagnostic Mammogram, [facility]. DESCRIPTION: The procedure of needle localization with wire placement and than surgical excision was explained to the patient. Benefits, alternatives, and risks were discussed. An informed consent was then obtained. The shortest pathway for procedure was chosen. Shortest pathway was an inferior approach. The overlying skin was prepped and draped in usual sterile fashion. Lidocaine was used as anesthetic into the skin and subcutaneous tissue up to the level of area of concern. A 5 cm needle was used. It was placed via a inferior approach under mammographic guidance. Subsequent 90 degrees mammogram show the needle to be in satisfactory position relative to the targeted area. At this point, wire was placed and the needle was withdrawn. The wire was fixed to patient's skin. Images were marked for surgeon. The patient tolerated the procedure well without any immediate complication. The patient was kept in the radiology department for short stay after the procedure and then taken to surgery for surgical excision. Targeted clip and wire are identified in specimen mammogram. The patient was kept in hospital for short stay after the procedure and then discharged home in stable condition. Impression: Successful, uncomplicated needle localization with wire placement and surgical excision of site of biopsy-proven radial scar in the left breast, full pathology results to follow. Pathology Results: Benign LEFT BREAST, NEEDLE LOCALIZATION EXCISION: Benign breast with previous biopsy site and fibrocystic changes including moderate usual type ductal hyperplasia. Recommendation Follow up diagnostic mammogram of the left breast in 6 months. RENETTA
== END 2021-10-30 18:10 | disposition home or self-care (01) ==
LOC: OR 11:32
PROVIDERS: ATTEND Surgery
DX: L90.5 Scar conditions and fibrosis of skin (principal); N60.12 Diffuse cystic mastopathy of left breast; N62 Hypertrophy of breast; F17.210 Nicotine dependence, cigarettes, uncomplicated; Z85.05 Personal history of malignant neoplasm of liver; Z80.41 Family history of malignant neoplasm of ovary; Z98.891 History of uterine scar from previous surgery; E05.00 Thyrotoxicosis with diffuse goiter without thyrotoxic crisis or storm; I10 Essential (primary) hypertension; K21.9 Gastro-esophageal reflux disease without esophagitis; I25.2 Old myocardial infarction; E89.0 Postprocedural hypothyroidism; L93.0 Discoid lupus erythematosus; Z79.82 Long term (current) use of aspirin; Z79.899 Other long term (current) drug therapy
CPT/HCPCS: 19125; 81025; 88307; 76098; 19281; C1819; J1100; J2001; J1644

== ENCOUNTER → 2021-11-15 | Outpatient (CLI) | payer BC ==
[2021-11-15 10:00] VITALS: BP 106/48; PULSE 57; RESP 16; TEMP 97.9
--- NOTE | 2021-11-15 10:07 | P.PN ---
Progress Note - Text Progress Note Date: 11/15/21 Linda is status post resection of left breast radial scar on 10-30-21. Pathology was benign. Patient has no complications status post procedure. Incision: Clean and dry Plan: Repeat left breast mammogram in 6 months with physician exam at that time CC: Dr. Tejada, Dr. Taylor
== END ==
LOC: WWCWWP 09:25
PROVIDERS: ATTEND Surgery
DX: Z48.817 Encounter for surgical aftercare following surgery on the skin and subcutaneous tissue (principal)
CPT/HCPCS: 76098

== ENCOUNTER → 2021-11-29 | Outpatient (CLI) | payer BC ==
--- NOTE | 2021-11-29 14:15 | P.PN ---
Subjective DATE: 11/29/2021 FOLLOW UP VISIT. Patient returned to sleep center for follow-up visit related to treatment of significant excessive daytime sleepiness secondary to narcolepsy. Patient is on treatment with Adderall 20 mg in the morning. With this regimen shows sleepiness is under control. [place] Sleepiness Scale is 7. No sleepiness wh ile driving the car. No side effects of Adderall. . . MEDICATIONS:1. Adderall 20 mg once a day in the morning 2. Aspirin 81 mg once a day 3. Lisinopril 5 mg once a day 4. Metoprolol 25 mg twice a day 5. Nifedipine 30 mg once a day 6. Levothyroxine 88 g once a day During physical exam: GENERAL: A pleasant patient without any distress. VITAL SIGNS: BP 103/66, HR 70, RR 14 , weight 142.6, temperature 97.6, oxygen saturation at room air 96 . HEENT: PERRLA, EOMI. NECK: Supple. No JVD. LUNGS: Clear to percussion and to auscultation. Good air exchange. No wheezing or rhonchi. HEART: S1, S2 regular. ABDOMEN: Soft and nontender. EXTREMITIES: No clubbing or cyanosis. PUTTIER: Awake, alert, and oriented x3. No focal deficit. Impressions: 1. Narcolepsy type II. 2. History of heart attack at the age of 26. 3. Status post thyroidectomy for Graves' disease. Plan: 1. Patient will continue treatment with Adderall 20 mg once a day in the morning. 2. Sleep hygiene with regular time in bed for at least 8 hours. 3. Daytime naps permitted 4. Precautions related to driving. No driving if feel any sleepiness. Patient is aware about civil and criminal liability for unsafe driving, promised to follow recommendations. 5. Follow up visit in 4-6 months or earlier if patient has any problems. Thank you very much for allowing me to participate in the management of your patient. Alek Ramirez MD, PhD, FAASM. Diplomat of [place] [employer], Sleep Medicine Board by [place] [employer]ding Supervisor of [facility] [place]
== END ==
LOC: SLEEP 13:44
PROVIDERS: ATTEND Internal Medicine
DX: G47.419 Narcolepsy without cataplexy (principal); Z86.79 Personal history of other diseases of the circulatory system; Z90.89 Acquired absence of other organs
CPT/HCPCS: 99212

== ENCOUNTER → 2022-05-23 | Outpatient (CLI) | payer BC ==
--- NOTE | 2022-05-23 13:57 | MM ---
Reason for Exam: Follow-up at short interval from prior study. Last screening mammogram was performed 11 month(s) ago. Patient History: Menarche at age 11. First Full-Term at age 25. Currently using Progesterone, beginning at age 42 for 3 years. 10/30/2021, Benign MG pre op needle loc LT on the left side. 08/02/2021, High risk Core Biopsy on the left side. Last menstrual period: 04/30/2022 Risk Values: Mayuri 5 year model risk: 2.5%. NCI Lifetime model risk: 17.4%. Prior Study Comparison: 06/08/2020 Bilateral Screening Mammogram, [facility]. 06/29/2021 Bilateral Screening Mammogram, [facility]. 07/11/2021 Left Diagnostic Mammogram, [facility]. Tissue Density: The breast tissue is extremely dense which could obscure a lesion on mammography. Findings: Analyzed By CAD. Pattern appears symmetrical and stable. Surgical clips are within the left breast. No suspicious groups of microcalcifications, spiculated or lobular masses, architectural distortion or other secondary signs of malignancy are mammographically apparent. Overall Assessment: Benign, BI-RAD 2 Management: Diagnostic Mammogram of both breasts in 1 year. A negative mammogram report should not preclude additional follow up of suspicious palpable abnormalities. Patient should continue monthly self breast exam. A clinical breast exam by your physician is recommended on an annual basis and results should be correlated with mammographic findings. Electronically signed and approved by: Jose Linn D.O. Radiologis
== END | disposition home or self-care (01) ==
LOC: RADMAMWWP 12:54
PROVIDERS: ATTEND Surgery
DX: R92.8 Other abnormal and inconclusive findings on diagnostic imaging of breast (principal); Z98.890 Other specified postprocedural states
CPT/HCPCS: 77062; 77066

== ENCOUNTER → 2022-06-05 | Outpatient (CLI) | payer BC ==
--- NOTE | 2022-06-05 16:35 | P.PN ---
Subjective DATE: 06/05/2022 FOLLOW UP VISIT. Patient returned to sleep center for follow-up visit related to treatment of significant excessive daytime sleepiness secondary to narcolepsy. Presently patient is on treatment with Adderall 20 mg once a day in the morning. With this regimen patient is able to control sure alertness during the day. No any side effects of medication. No sleepiness while driving the car. . Grandin sleepiness scale is 7, which is normal. MEDICATIONS:1. Adderall 20 mg once a day 2. Metoprolol 25 mg twice a day 3. Levothyroxine 88 g once a day 4. Lisinopril 5 mg once a day 5. Nifedipine 30 mg once a day 6. Hydroxychloroquine twice a day During physical exam: GENERAL: A pleasant patient without any distress. VITAL SIGNS: BP 96/59, HR 77, RR 12, weight 149.6, temperature 96.8, oxygen saturation at room air 100. HEENT: PERRLA, EOMI. NECK: Supple. No JVD. LUNGS: Clear to percussion and to auscultation. Good air exchange. No wheezing or rhonchi. HEART: S1, S2 regular. ABDOMEN: Soft and nontender. EXTREMITIES: No clubbing or cyanosis. VOLUNTEER SERVICES COORDINATOR: Awake, alert, and oriented x3. No focal deficit. Impressions: 1. Narcolepsy type II 2. Status post thyroidectomy for Graves' disease. 3. History of heart attack at the age of 26. Plan: 1. Patient will continue treatment with Adderall 20 mg once a day in the morning 2. Sleep hygiene with regular time in bed for at least 8 hours. 3. Daytime naps permitted 4. Precautions related to driving. No driving if feel any sleepiness. Patient is aware about civil and criminal liability for unsafe driving, promised to follow recommendations. 5. Follow up visit in 4-6 months or earlier if patient has any problems. Thank you very much for allowing me to participate in the management of your pa tient. Alek Ramirez MD, PhD, FAASM. Diplomat of [place] [employer], Sleep Medicine Board by [place] [employer] Tool Rental Technician of [facility] [place]
== END ==
LOC: SLEEP 16:07
PROVIDERS: ATTEND Internal Medicine
DX: G47.419 Narcolepsy without cataplexy (principal); Z86.73 Personal history of transient ischemic attack (TIA), and cerebral infarction without residual deficits; Z90.89 Acquired absence of other organs; Z79.899 Other long term (current) drug therapy; Z79.82 Long term (current) use of aspirin
CPT/HCPCS: 99212

== ENCOUNTER → 2022-07-25 | Outpatient (CLI) | payer BC ==
[2022-07-25 13:51] VITALS: BP 108/72; PULSE 74; RESP 17; TEMP 98
--- NOTE | 2022-07-25 14:09 | P.PN ---
Subjective Progress Note Date: 07/25/22 Principal diagnosis: fibrocystic breast changes Linda is a 45 year old white female seen in consultation for Dr. Tejada regarding a mammographic abnormality in her left breast in the lower mid portion. These were found on a routine mammogram. The patient did not feel any lesions of concern in either breast. She was not complaining of any nipple discharge or skin changes. She had never had any surgery on her breast in the past. She had a stero biopsy of the left bresat on 08-02-21 which revealed a radial scar. She than had a needle localization and open biopsy on 10-30-21. This was benign. She had a bilateral mammogram on 05-23-22 which wa BIRAD 2. She is not concerned about any new lumps masses or nodules in either breast. Mayuri Risk 2.5% at 5 years patient has declined chemoprophylaxis Caffeine: rare nicotine: 6 cigarettes/day; intermittent since 18 hormones: progesterone 2 years; 14th through 28th day of cycle; stopped this prior to surgery chocolate: daily Family history: father: liver cancer not an alcoholic/no history of hepatitis maternal aunt: ovarian cancer Hormonal History: menarche: 11 A1, age at first : 24, breast fed: no periods regular progesterone: 2 years BCP: none Surgical History: C section thyroid resection Graves disease left breast biopsy Medical History: [place] at 26 11 days postpastum/ a blood clot from delivery hypothyroid discoid lupus Social History: nicotine: 6/day alcohol: none drugs: none - Constitutional Constitutional: Denies chills, Denies fever - EENT Eyes: denies blurred vision, denies pain Ears: deny: decreased hearing, tinnitus Ears, nose, mouth and throat: Denies headache, Denies sore throat - Breasts Breasts: bilateral: as per HPI - Cardiovascular Comment: [place] Cardiovascular: Reports as per HPI, Denies chest pain, Denies shortness of breath - Respiratory Comment: smoker - Gastrointestinal Gastrointestinal: Denies abdominal pain, Denies diarrhea, Denies nausea, Denies vomiting - Genitourinary (Female) Genitourinary: Denies dysuria, Denies hematuria - Menstruation Menstruation: Reports period normal - Musculoskeletal Musculoskeletal: Denies myalgias - Integumentary Integumentary: Denies pruritus, Denies rash - Neurological Neurological: Denies numbness, Denies weakness - Psychiatric Psychiatric: Denies anxiety, Denies depression - Endocrine Endocrine: Denies fatigue, Denies weight change - Hematologic/Lymphatic Comment: aspirin daily 81 mg - Allergic/Immunologic Allergic/Immunologic: Reports as per HPI Past Medical History Past Medical History: Myocardial Infarction ([place]), Thyroid Disorder Additional Past Medical History / Comment(s): mi 20 years ago, graves-thyroid removed 6 years ago Last Myocardial Infarction Date:: History of Any Multi-Drug Resistant Organisms: None Reported Past Surgical History: Section Additional Past Surgical History / Comment(s): thyroidectomy 6 years ago Past Anesthesia/Blood Transfusion Reactions: No Reported Reaction Past Psychological History: No Psychological Hx Reported Smoking Status: Current every day smoker Past Drug Use History: None Reported - Past Family History Father Family Medical History: Cancer Additional Family Medical History / Comment(s): liver Medications and Allergies Home Medications Medication Instructions Recorded Confirmed Type Aspirin [Adult Low Dose Aspirin EC] 81 mg PO DAILY 07/23/21 08/02/21 History Hydroxychloroquine Sulfate 200 mg PO BID 07/23/21 08/02/21 History Levothyroxine Sodium 88 mcg PO DAILY 07/23/21 08/02/21 History Metoprolol Tartrate [Lopressor] 25 mg PO BID 07/23/21 08/02/21 History lisinopriL [Zestril] 5 mg PO DAILY 07/23/21 08/02/21 History Allergies Allergy/AdvReac Type Severity Reaction Status Date / Time No Known Allergies Allergy Verified 08/02/21 07:22 Objective - Vital Signs Vital signs: Vital Signs Temp 98.0 F 07/25/22 13:48 Pulse 74 07/25/22 13:48 Resp 17 07/25/22 13:48 BP 108/72 07/25/22 13:48 Pulse Ox 100 07/25/22 13:48 FiO2 Intake & Output 07/24/22 07/25/22 07/25/22 18:59 06:59 18:59 Weight 65.771 kg - Constitutional General appearance: Present: cooperative - EENT Eyes: Present: EOMI ENT: Present: hearing grossly normal - Neck Neck: Present: normal ROM - Respiratory Respiratory: bilateral: CTA - Cardiovascular Rhythm: regular Heart sounds: normal: S1, S2 - Gastrointestinal General gastrointestinal: Present: soft - Integumentary Integumentary: Present: normal turgor - Musculoskeletal Musculoskeletal: Present: gait normal - Psychiatric Psychiatric: Present: A&O x's 3, appropriate affect, intact judgment & insight - Additional findings Additional findings: Breast Exam: BRA: 36B inspection: Bilateral grade 2 ptosis Palpation: Right breast: Multiple positional exam fibrocystic changes no dominant masses or nodules of concern Right axilla: No adenopathy of concern left breast: Multiple positional exam fibrocystic changes no dominant masses or nodules of concern Left axilla: No adenopathy of concern Assessment and Plan Assessment: Impression: Fibrocystic breast changes Mayuri risk evaluation 5 year 2.5% Patient has declined chemoprophylaxis at this time Plan: Bilateral mammogram in 1 year with physician exam at that time Patient is going to talk to Dr. Tejada regarding restarting hormone therapy and if she does do that she will continue to follow here. CC: Dr. Tejada
== END ==
LOC: WWCWWP 13:08
PROVIDERS: ATTEND Surgery
DX: N60.22 Fibroadenosis of left breast (principal); I25.2 Old myocardial infarction; F17.210 Nicotine dependence, cigarettes, uncomplicated; E03.9 Hypothyroidism, unspecified; Z80.0 Family history of malignant neoplasm of digestive organs; Z79.82 Long term (current) use of aspirin; Z79.890 Hormone replacement therapy

== ENCOUNTER 2022-08-23 20:13 | Emergency (ER) | payer BC ==
[2022-08-23] MEDS ORDERED: SODIUM CHLORIDE 0.9% 1,000 ML IV STA (20:43)
[2022-08-23] MEDS ORDERED: ONDANSETRON 4 MG/2 ML VIAL IVP STA (20:43)
[2022-08-23 21:04] LABS: Basophils % (A) 0 %; Eosinophils # (A) 0.2 k/uL (0-0.7); Eosinophils % (A) 2 %; HCT 38.6 % (34.0-46.0); Lymphocytes # (A) 1.7 k/uL (1.0-4.8); Lymphocytes % (A) 17 %; MCH 31.4 pg (25.0-35.0); MCHC 33.8 g/dL (31.0-37.0); MCV 92.7 fL (80.0-100.0); Mean Platelet Volume 7.3; Monocytes # (A) 0.6 k/uL (0-1.0); Monocytes % (A) 6 %; Neutrophils # (A) 7.5 k/uL (1.3-7.7); Neutrophils % (A) 74 %; Platelet Count 288 k/uL (150-450); RBC 4.16 m/uL (3.80-5.40); RDW 12.2 % (11.5-15.5); WBC 10.1 k/uL (3.8-10.6)
[2022-08-23 21:21] LABS: Albumin 3.9 g/dL (3.5-5.0); Calcium 9.1 mg/dL (8.4-10.2); Potassium 3.3 mmol/L (3.5-5.1); Total Bilirubin 0.4 mg/dL (0.2-1.3); Total Protein 6.9 g/dL (6.3-8.2)
--- NOTE | 2022-08-23 21:44 | XR ---
EXAMINATION TYPE: XR chest 1V portable DATE OF EXAM: 08/23/2022 COMPARISON: NONE HISTORY: Chest pain TECHNIQUE: Single frontal view of the chest is obtained. FINDINGS: There is no focal air space opacity, pleural effusion, or pneumothorax seen. The cardiac silhouette size is within normal limits. The osseous structures are intact. IMPRESSION: 1. No acute process.
--- NOTE | 2022-08-23 21:45 | XR ---
EXAMINATION TYPE: XR KUB DATE OF EXAM: 08/23/2022 COMPARISON: NONE HISTORY: Pain TECHNIQUE: Single supine KUB image of the abdomen is obtained FINDINGS: Small bowel demonstrates no evidence for dilatation or air fluid levels. Gas and fecal material is seen in non-distended colon. No convincing evidence for pneumoperitoneum. No unusual calcifications. The lung bases are clear. The osseous structures are intact. IMPRESSION: 1. Overall nonobstructive bowel gas pattern.
[2022-08-23 22:00] LABS: Appearance,Urine Clear (Clear); Bilirubin,Urine Negative (Negative); Blood,Urine Small (Negative); Color,Urine Yellow; Glucose,Urine (UA) Negative (Negative); Ketones,Urine Negative (Negative); Leukocyte Esterase,Urine Negative (Negative); Mucus,Urine Rare /hpf; Nitrite,Urine Negative (Negative); Protein,Urine Trace (Negative); RBC,Urine <1 /hpf (0-5); Specific Gravity,Urine 1.016 (1.001-1.035); Urobilinogen,Urine <2.0 mg/dL (<2.0); WBC,Urine 1 /hpf (0-5)
--- NOTE | 2022-08-23 22:16 | ED ---
Abdominal Pain HPI - General Chief Complaint: Abdominal Pain Stated Complaint: SOB/SWEATS Time Seen by Provider: 08/23/22 20:35 Source: patient Mode of arrival: ambulatory Limitations: no limitations - History of Present Illness Initial Comments: Patient is a 46-year-old female presenting with chief complaint of abdominal pain. Patient states that at home earlier this evening she had an acute episode of severe abdominal cramping in the bilateral lower quadrants. This was accompanied by nausea and sweating. Patient states she is also feeling a bit dizzy during this episode. She states that recently she has been constipated, since that episode she has had diarrhea. Patient has not had abdominal pain since the episode, no pain currently. No rectal bleeding, hematochezia, melena. No chest pain or difficulty breathing. No fevers or chills. No vomiting. No palpitations. - Related Data Home Medications Medication Instructions Recorded Confirmed Aspirin [Adult Low Dose Aspirin EC] 81 mg PO DAILY 07/23/21 07/25/22 Hydroxychloroquine Sulfate 200 mg PO BID 07/23/21 07/25/22 Levothyroxine Sodium 88 mcg PO DAILY 07/23/21 07/25/22 Metoprolol Tartrate [Lopressor] 25 mg PO BID 07/23/21 07/25/22 lisinopriL [Zestril] 5 mg PO DAILY 07/23/21 07/25/22 Dextroamphetamine/Amphetamine 20 mg PO DAILY 10/18/21 07/25/22 [Adderall] NIFEdipine [Adalat CC] 30 mg PO DAILY 07/25/22 07/25/22 Allergies Allergy/AdvReac Type Severity Reaction Status Date / Time No Known Allergies Allergy Verified 08/23/22 20:20 Review of Systems ROS Statement: Those systems with pertinent positive or pertinent negative responses have been documented in the HPI. ROS Other: All systems not noted in ROS Statement are negative. Past Medical History Past Medical History: Hypertension, Myocardial Infarction ([place]), Thyroid Disorder Additional Past Medical History / Comment(s): mi 20 years ago, graves Last Myocardial Infarction Date:: 1999approx History of Any Multi-Drug Resistant Organisms: None Reported Past Surgical History: Section Additional Past Surgical History / Comment(s): thyroidectomy 6 years ago. COLONOSCOPY Past Anesthesia/Blood Transfusion Reactions: No Reported Reaction Past Psychological History: No Psychological Hx Reported Smoking Status: Current every day smoker Past Alcohol Use History: Occasional Past Drug Use History: None Reported - Past Family History Father Family Medical History: Cancer Additional Family Medical History / Comment(s): liver General Exam Limitations: no limitations General appearance: alert, in no apparent distress Head exam: Present: atraumatic, normocephalic, normal inspection Eye exam: Present: normal appearance, EOMI. Absent: periorbital swelling Neck exam: Present: normal inspection, full ROM Respiratory exam: Present: normal lung sounds bilaterally. Absent: respiratory distress, wheezes, rales, rhonchi, stridor Cardiovascular Exam: Present: regular rate, normal rhythm, normal heart sounds. Absent: systolic murmur, diastolic murmur, rubs, gallop, clicks GI/Abdominal exam: Present: soft. Absent: distended, tenderness, guarding, sagar ound, rigid Neurological exam: Present: alert, oriented X3, CN II-XII intact Psychiatric exam: Present: normal affect, normal mood Skin exam: Present: warm, dry, intact, normal color. Absent: rash Course Vital Signs 08/23/22 08/23/22 08/23/22 20:17 21:12 22:38 Temperature 97.6 F 98.1 F Pulse Rate 73 59 L 57 L Respiratory 20 15 16 Rate Blood Pressure 102/55 103/63 101/55 O2 Sat by Pulse 100 99 Oximetry Medical Decision Making - Medical Decision Making Was pt. sent in by a medical professional or institution ([facility], TARIFF [employer]ILER, urgent care, hospital, or [facility]...) When possible be specific @ -No Did you speak to anyone other than the patient for history (EMS, parent, family, police, friend...)? What history was obtained from this source @ -No Did you review nursing and triage notes (agree or disagree)? Why? @ -I reviewed and agree with nursing and triage notes Were old charts reviewed (outside hosp., previous admission, EMS record, old EKG, old radiological studies, urgent care reports/EKG's, [facility] records)? Report findings @ -No old charts were reviewed Differential Diagnosis (chest pain, altered mental status, abdominal pain women, abdominal pain men, vaginal bleeding, weakness, fever, dyspnea, syncope, headach e, dizziness, GI bleed, back pain, seizure, CVA, palpatations, mental health, musculoskeletal)? @ -MDM Differential Abdominal Pain Women: Appendicitis, Cholecystitis, diverticulosis, ischemic bowel, pancreatitis, hepatitis, UTI, gastroenteritis, AAA, incarcerated hernia, bowel obstruction, constipation, inflammatory bowel, hepatitis, peptic ulcer disease, splenic infarction, perforated viscus, vulvitis, ovarian torsion, PID, kidney stone, placenta abruption... This is not meant to be an all-inclusive list EKG interpreted by me (3pts min.). @ -Sinus bradycardia ventricular rate 57. DE interval 138. QRS 112. QTc 414. QTC 408. Normal axis. No ischemic changes. X-rays interpreted by me (1pt min.). @ -Chest x-ray and KUB x-ray showed no acute process. CT interpreted by me (1pt min.). @ -None done U/S interpreted by me (1pt. min.). @ -None done What testing was considered but not performed or refused? (CT, X-rays, U/S, labs)? Why? @ -None What meds were considered but not given or refused? Why? @ -None Did you discuss the management of the patient with other professionals (professionals i.e. , PA, TARIFF COMPILER, lab, RT, psych nurse, high school social studies teacher, medical leader, teacher, small business banking officer, caser in)? Give summary @ -No Was smoking cessation discussed for >3mins.? @ -No Was critical care preformed (if so, how long)? @ -No Were there social determinants of health that impacted care today? How? (Homelessness, low income, unemployed, alcoholism, drug addiction, transportation, low edu. Level, literacy, decrease access to med. care, [facility], rehab)? @ -No Was there de-escalation of care discussed even if they declined (Discuss DNR or withdrawal of care, Hospice)? DNR status @ -No What co-morbidities impacted this encounter? (DM, HTN, Smoking, COPD, CAD, Cancer, CVA, ARF, Chemo, Hep., AIDS, mental health diagnosis, sleep apnea, morbi d obesity)? @ -None Was patient admitted / discharged? Hospital course, mention meds given and route, prescriptions, significant lab abnormalities, going to OR and other pertinent info. @ -Discharged. Patient is a 46-year-old female presenting with chief complaint of an episode of abdominal pain accompanied by nausea, sweating, and dizziness that occurred this evening. Patient has no pain currently. Patient was constipated, states after her episode she has had diarrhea. Physical examination abdomen is soft, nontender, nondistended. Lab work shows no leukocytosis or anemia. CMP shows potassium 3.3. BUN 20 and creatinine 1.05, patient is receiving IV fluids. Negative troponin and EKG shows no acute changes. Urine and hCG are negative. Chest x-ray and KUB x-ray showed no acute process. Patient is resting comfortably. She is educated on these findings. Educated on possible gastroenteritis. Follow-up with PCP. Report back to ER with any new or worsening symptoms. Discussed return parameters and answered all questions. Patient conveyed verbal understanding and agreed to the plan. I discussed this case in detail with my attending Dr. Matute Undiagnosed new problem with uncertain prognosis? @ -No Drug Therapy requiring intensive monitoring for toxicity (Heparin, Nitro, Insulin, Cardizem)? @ -No Were any procedures done? @ -No Diagnosis/symptom? @ -Diarrhea Acute, or Chronic, or Acute on Chronic? @ -Acute Uncomplicated (without systemic symptoms) or Complicated (systemic symptoms)? @ -Uncomplicated Side effects of treatment? @ -No Exacerbation, Progression, or Severe Exacerbation? @ -No Poses a threat to life or bodily function? How? (Chest pain, [place], [place], pneumonia, PE, COPD, DKA, ARF, appy, cholecystitis, CVA, Diverticulitis, Homicidal, Suicidal, threat to staff... and all critical care pts) @ -No - Lab Data Result diagrams: 08/23/22 20:53 08/23/22 20:53 Lab Results 08/23/22 08/23/22 08/23/22 Range/Units 20:53 20:53 20:53 WBC 10.1 (3.8-10.6) k/uL RBC 4.16 (3.80-5.40) m/uL Hgb 13.0 (11.4-16.0) gm/dL Hct 38.6 (34.0-46.0) % MCV 92.7 (80.0-100.0) fL MCH 31.4 (25.0-35.0) pg MCHC 33.8 (31.0-37.0) g/dL RDW 12.2 (11.5-15.5) % Plt Count 288 (150-450) k/uL MPV 7.3 Neutrophils % 74 % Lymphocytes % 17 % Monocytes % 6 % Eosinophils % 2 % Basophils % 0 % Neutrophils # 7.5 (1.3-7.7) k/uL Lymphocytes # 1.7 (1.0-4.8) k/uL Monocytes # 0.6 (0-1.0) k/uL Eosinophils # 0.2 (0-0.7) k/uL Basophils # 0.0 (0-0.2) k/uL Sodium 138 (137-145) mmol/L Potassium 3.3 L (3.5-5.1) mmol/L Chloride 102 (98-107) mmol/L Carbon Dioxide 28 (22-30) mmol/L Anion Gap 8 mmol/L BUN 20 H (7-17) mg/dL Creatinine 1.05 H (0.52-1.04) mg/dL Est GFR (CKD-EPI)AfAm 74 (>60 ml/min/1.73 sqM) Est GFR (CKD-EPI)NonAf 64 (>60 ml/min/1.73 sqM) Glucose 102 H (74-99) mg/dL Plasma Lactic Acid Jf 1.5 (0.7-2.0) mmol/L Calcium 9.1 (8.4-10.2) mg/dL Total Bilirubin 0.4 (0.2-1.3) mg/dL AST 22 (14-36) U/L ALT 17 (4-34) U/L Alkaline Phosphatase 45 (38-126) U/L Troponin I (0.000-0.034) ng/mL Total Protein 6.9 (6.3-8.2) g/dL Albumin 3.9 (3.5-5.0) g/dL Amylase 65 (30-110) U/L Lipase 228 (23-300) U/L Urine Color Urine Appearance (Clear) Urine pH (5.0-8.0) Ur Specific [place] (1.001-1.035) Urine Protein (Negative) Urine Glucose (UA) (Negative) Urine Ketones (Negative) Urine Blood (Negative) Urine Nitrite (Negative) Urine Bilirubin (Negative) Urine Urobilinogen (<2.0) mg/dL Ur Leukocyte Esterase (Negative) Urine RBC (0-5) /hpf Urine WBC (0-5) /hpf Urine Mucus (None) /hpf Urine HCG, Qual (Not Detectd) 08/23/22 08/23/22 08/23/22 Range/Units 20:53 21:08 21:08 WBC (3.8-10.6) k/uL RBC (3.80-5.40) m/uL Hgb (11.4-16.0) gm/dL Hct (34.0-46.0) % MCV (80.0-100.0) fL MCH (25.0-35.0) pg MCHC (31.0-37.0) g/dL RDW (11.5-15.5) % Plt Count (150-450) k/uL MPV Neutrophils % % Lymphocytes % % Monocytes % % Eosinophils % % Basophils % % Neutrophils # (1.3-7.7) k/uL Lymphocytes # (1.0-4.8) k/uL Monocytes # (0-1.0) k/uL Eosinophils # (0-0.7) k/uL Basophils # (0-0.2) k/uL Sodium (137-145) mmol/L Potassium (3.5-5.1) mmol/L Chloride (98-107) mmol/L Carbon Dioxide (22-30) mmol/L Anion Gap mmol/L BUN (7-17) mg/dL Creatinine (0.52-1.04) mg/dL Est GFR (CKD-EPI)AfAm (>60 ml/min/1.73 sqM) Est GFR (CKD-EPI)NonAf (>60 ml/min/1.73 sqM) Glucose (74-99) mg/dL Plasma Lactic Acid Jf (0.7-2.0) mmol/L Calcium (8.4-10.2) mg/dL Total Bilirubin (0.2-1.3) mg/dL AST (14-36) U/L ALT (4-34) U/L Alkaline Phosphatase (38-126) U/L Troponin I <0.012 (0.000-0.034) ng/mL Total Protein (6.3-8.2) g/dL Albumin (3.5-5.0) g/dL Amylase (30-110) U/L Lipase (23-300) U/L Urine Color Yellow Urine Appearance Clear (Clear) Urine pH 5.0 (5.0-8.0) Ur Specific [place] 1.016 (1.001-1.035) Urine Protein Trace H (Negative) Urine Glucose (UA) Negative (Negative) Urine Ketones Negative (Negative) Urine Blood Small H (Negative) Urine Nitrite Negative (Negative) Urine Bilirubin Negative (Negative) Urine Urobilinogen <2.0 (<2.0) mg/dL Ur Leukocyte Esterase Negative (Negative) Urine RBC <1 (0-5) /hpf Urine WBC 1 (0-5) /hpf Urine Mucus Rare H (None) /hpf Urine HCG, Qual Not Detected (Not Detectd) Disposition Clinical Impression: Diarrhea Disposition: HOME SELF-CARE Condition: Good Instructions (If sedation given, give patient instructions): Gastroenteritis (ED), Acute Diarrhea (ED) Additional Instructions: Follow-up with PCP. Report back to ER with any new or worsening symptoms. Is patient prescribed a controlled substance at d/c from ED?: No Referrals: Oswaldo Merrill DO [Primary Care Provider] - 1-2 days Time of Disposition: 22:15
[2022-08-23 22:39] VITALS: BP 101/55; PULSE 57; RESP 16; TEMP 98.1
== END 2022-08-23 22:38 | disposition home or self-care (01) ==
LOC: EC 20:13
DX: R19.7 Diarrhea, unspecified (principal); I10 Essential (primary) hypertension; I25.2 Old myocardial infarction; E07.9 Disorder of thyroid, unspecified; F17.200 Nicotine dependence, unspecified, uncomplicated; Z79.82 Long term (current) use of aspirin; Z79.899 Other long term (current) drug therapy
CPT/HCPCS: 36415; 93005; 80053; 82150; 83605; 83690; 84484; 85025; 81001; 81025; 71045; 74018; 99284; 96374; 96361; J2405

== ENCOUNTER → 2023-05-26 | Outpatient (CLI) | payer BC ==
--- NOTE | 2023-05-26 15:15 | MM ---
Reason for Exam: Clinical finding. Last mammogram was performed 1 year(s) and 11 month(s) ago. Patient History: Menarche at age 11. First Full-Term at age 25. Progesterone for 3 years from age 42 until age 46. 10/30/2021, Benign MG pre op needle loc LT on the left side. 08/02/2021, High risk Core Biopsy on the left side. Last menstrual period: 05/19/2023 Risk Values: Mayuri 5 year model risk: 2.3%. NCI Lifetime model risk: 17.0%. Prior Study Comparison: 11/10/2018 Bilateral Screening Mammogram, [facility]. 06/08/2020 Bilateral Screening Mammogram, [facility]. 06/29/2021 Bilateral Screening Mammogram, [facility]. 07/11/2021 Left Diagnostic Mammogram, [facility]. 05/23/2022 Bilateral MG 3D diag mammo w/cad [place], [facility]. Tissue Density: The breast tissue is heterogeneously dense. This may lower the sensitivity of mammography. Findings: Analyzed By CAD. Postsurgical change left breast. Areas of asymmetric density remain unchanged. No significant change from prior exams. Overall Assessment: Benign, BI-RAD 2 Management: Screening Mammogram of both breasts in 1 year. Results were given to the patient verbally at the time of exam. Patient should continue monthly self-breast exams. A clinical breast exam by your physician is recommended on an annual basis. This exam should not preclude additional follow-up of suspicious palpable abnormalities. Note on Mayuri scores and lifetime risk: 1. A Mayuri score greater than 3% is considered moderate risk. If this is the case, consider specialist referral to assess eligibility for a risk reducing agent. 2. If overall lifetime risk for the development of breast cancer is 20% or higher, the patient may qualify for future screening with alternating mammogram and breast MRI. Electronically signed and approved by: Salima Painter M.D. Radiologist
== END | disposition home or self-care (01) ==
LOC: RADMAMWWP 14:45
PROVIDERS: ATTEND Surgery
DX: R92.8 Other abnormal and inconclusive findings on diagnostic imaging of breast (principal); R92.333 Mammographic heterogeneous density, bilateral breasts
CPT/HCPCS: 77062; 77066

== ENCOUNTER → 2023-05-28 | Outpatient (CLI) | payer BC ==
--- NOTE | 2023-05-28 13:39 | P.PN ---
Subjective Progress Note Date: 05/28/23 Principal diagnosis: fibrocystic breast disease fibrocystic breast changes Linda is a 47 year old white female seen in consultation for Dr. Tejada regarding a mammographic abnormality in her left breast in the lower mid portion. These were found on a routine mammogram. The patient did not feel any lesions of concern in either breast. She was not complaining of any nipple discharge or skin changes. She had never had any surgery on her breast in the past. She had a stero biopsy of the left breast on 08-02-21 which revealed a radial scar. She than had a needle localization and open biopsy on 10-30-21. This was benign. She had a bilateral mammogram on 05-26-23 which wa BIRAD 2. She is not concerned about any new lumps masses or nodules in either breast. Mayuri Risk 2.3% at 5 years patient has declined chemoprophylaxis Caffeine: rare nicotine: 6 cigarettes/day; intermittent since 18 hormones: progesterone 2 years; 14th through 28th day of cycle; stopped this prior to surgery on her left breast on 10-30-21; did not restart hormones chocolate: daily Family history: father: liver cancer not an alcoholic/no history of hepatitis maternal aunt: ovarian cancer Hormonal History: menarche: 11 A1, age at first : 24, breast fed: no periods regular progesterone: 2 years BCP: none Surgical History: C section thyroid resection Graves disease left breast biopsy Medical History: MA at 26 11 days postpastum/ a blood clot from delivery hypothyroid discoid lupus Social History: nicotine: 6/day alcohol: none drugs: none - Constitutional Constitutional: Denies chills, Denies fever - EENT Eyes: denies blurred vision, denies pain Ears: deny: decreased hearing, tinnitus Ears, nose, mouth and throat: Denies headache, Denies sore throat - Breasts Breasts: bilateral: as per HPI - Cardiovascular Comment: MA Cardiovascular: Reports as per HPI, Denies chest pain, Denies shortness of breath - Respiratory Comment: smoker - Gastrointestinal Gastrointestinal: Denies abdominal pain, Denies diarrhea, Denies nausea, Denies vomiting - Genitourinary (Female) Genitourinary: Denies dysuria, Denies hematuria - Menstruation Menstruation: Reports period normal - Musculoskeletal Musculoskeletal: Denies myalgias - Integumentary Integumentary: Denies pruritus, Denies rash - Neurological Neurological: Denies numbness, Denies weakness - Psychiatric Psychiatric: Denies anxiety, Denies depression - Endocrine Endocrine: Denies fatigue, Denies weight change - Hematologic/Lymphatic Comment: aspirin daily 81 mg - Allergic/Immunologic Allergic/Immunologic: Reports as per HPI Past Medical History Past Medical History: Myocardial Infarction (MA), Thyroid Disorder Additional Past Medical History / Comment(s): mi 20 years ago, graves-thyroid removed 6 years ago Last Myocardial Infarction Date:: History of Any Multi-Drug Resistant Organisms: None Reported Past Surgical History: Section Additional Past Surgical History / Comment(s): thyroidectomy 6 years ago Past Anesthesia/Blood Transfusion Reactions: No Reported Reaction Past Psychological History: No Psychological Hx Reported Smoking Status: Current every day smoker Past Drug Use History: None Reported - Past Family History Father Family Medical History: Cancer Additional Family Medical History / Comment(s): liver Medications and Allergies Home Medications Medication Instructions Recorded Confirmed Type Aspirin [Adult Low Dose Aspirin EC] 81 mg PO DAILY 07/23/21 08/02/21 History Hydroxychloroquine Sulfate 200 mg PO BID 07/23/21 08/02/21 History Levothyroxine Sodium 88 mcg PO DAILY 07/23/21 08/02/21 History Metoprolol Tartrate [Lopressor] 25 mg PO BID 07/23/21 08/02/21 History lisinopriL [Zestril] 5 mg PO DAILY 07/23/21 08/02/21 History Allergies Allergy/AdvReac Type Severity Reaction Status Date / Time No Known Allergies Allergy Verified 08/02/21 07:22 Objective - Constitutional General appearance: Present: cooperative - EENT Eyes: Present: EOMI ENT: Present: hearing grossly normal - Neck Neck: Present: normal ROM - Respiratory Respiratory: bilateral: CTA - Cardiovascular Heart sounds: normal: S1, S2 - Gastrointestinal General gastrointestinal: Present: soft - Integumentary Integumentary: Present: normal turgor - Musculoskeletal Musculoskeletal: Present: gait normal - Psychiatric Psychiatric: Present: A&O x's 3, appropriate affect, intact judgment & insight - Additional findings Additional findings: Breast Exam: BRA: 36B inspection: Bilateral grade 2 ptosis Palpation: Right breast: Multiple positional exam fibrocystic changes no dominant masses or nodules of concern Right axilla: No adenopathy of concern left breast: Multiple positional exam fibrocystic changes no dominant masses or nodules of concern Left axilla: No adenopathy of concern Assessment and Plan Assessment: Impression: Fibrocystic breast changes Mayuri risk evaluation 5 year 2.3% Patient has declined chemoprophylaxis at this time Plan: Bilateral mammogram in 1 year with physician exam at that time Linda has not restarted her progesterone and is doing well without it CC: Dr. Tejada Additional CC's: Kina Merrill
[2023-05-28 13:42] VITALS: BP 120/73; PULSE 88; RESP 17; TEMP 97.9
== END ==
LOC: WWCWWP 13:17
PROVIDERS: ATTEND Surgery
DX: N60.12 Diffuse cystic mastopathy of left breast (principal); E03.9 Hypothyroidism, unspecified; F17.210 Nicotine dependence, cigarettes, uncomplicated; I25.2 Old myocardial infarction; Z98.890 Other specified postprocedural states; Z79.890 Hormone replacement therapy; Z79.82 Long term (current) use of aspirin

== ENCOUNTER → 2023-07-23 | Outpatient (CLI) | payer BC ==
[2023-07-23 17:59] VITALS: BP 108/69; PULSE 75; RESP 16; TEMP 97.7
--- NOTE | 2023-07-23 18:20 | P.PN ---
Subjective DATE: 07/23/2023 FOLLOW UP VISIT. Patient returned to sleep center for follow-up visit related to treatment of significant excessive daytime sleepiness secondary to narcolepsy. Patient is on treatment with Adderall 20 mg once a day. With this medication patient is able to control show alertness. No any side effects of medication. Gibbon sleepiness scale is 10. MEDICATIONS:1. Aspirin 81 mg once a day 2. Levothyroxine 88 mcg once a day 3. Lisinopril 5 mg once a day 4. Metoprolol 25 mg once a day 5. Nifedipine 30 mg once a day During physical exam: GENERAL: A pleasant patient without any distress. VITAL SIGNS: Please see below. HEENT: PERRLA, EOMI. NECK: Supple. No JVD. LUNGS: Clear to percussion and to auscultation. Good air exchange. No wheezing or rhonchi. HEART: S1, S2 regular. ABDOMEN: Soft and nontender. EXTREMITIES: No clubbing or cyanosis. HUMAN RESOURCES COMPENSATION ANALYST: Awake, alert, and oriented x3. No focal deficit. Impressions: 1. Narcolepsy type II 2. History of heart attack at the age of 26. 3. Status post thyroidectomy for Graves' disease. Plan: 1. Patient will continue treatment with Adderall 20 mg once a day in the morning. 2. Sleep hygiene with regular time in bed for at least 8 hours. 3. Daytime naps permitted 4. Precautions related to driving. No driving if feel any sleepiness. Patient is aware about civil and criminal liability for unsafe driving, promised to follow recommendations. 5. Follow up visit in 4-6 months or earlier if patient has any problems. Thank you very much for allowing me to participate in the management of your patient. Alek Ramirez MD, PhD, FAASM. Diplomat of [place] [employer], Sleep Medicine Board by [place] [employer] Certified Genetic Counselor of [facility] [place] Objective - Vital Signs Vital signs: Vital Signs Temp 97.7 F 07/23/23 17:51 Pulse 75 07/23/23 17:51 Resp 16 07/23/23 17:51 BP 108/69 07/23/23 17:51 Pulse Ox 100 07/23/23 17:51 FiO2
== END ==
LOC: 3 N SLEEP 16:32
PROVIDERS: ATTEND Internal Medicine
DX: G47.419 Narcolepsy without cataplexy (principal); I25.2 Old myocardial infarction; E89.0 Postprocedural hypothyroidism; Z79.890 Hormone replacement therapy; Z79.899 Other long term (current) drug therapy
CPT/HCPCS: 99212

== ENCOUNTER → 2024-02-18 | Outpatient (CLI) | payer BC ==
[2024-02-18 16:41] VITALS: BP 111/70; PULSE 76; RESP 16; TEMP 98.2
--- NOTE | 2024-02-18 16:53 | P.PROGSL ---
Subjective DATE: 02/18/2024 FOLLOW UP VISIT. Patient returned to sleep center for follow-up visit related to treatment of significant excessive daytime sleepiness secondary to narcolepsy. Patient is on treatment with Adderall 20 mg once a day in the morning. With this regimen patient alertness is on control. No any side effects. No jittering, no tachyc ardia. [place] sleepiness scale is 11, which is close to the border. MEDICATIONS: Please see below During physical exam: GENERAL: A pleasant patient without any distress. VITAL SIGNS: Please see below. HEENT: PERRLA, EOMI. NECK: Supple. No JVD. LUNGS: Clear to percussion and to auscultation. Good air exchange. No wheezing or rhonchi. HEART: S1, S2 regular. ABDOMEN: Soft and nontender. EXTREMITIES: No clubbing or cyanosis. DISTANCE EDUCATION FACULTY LIAISON: Awake, alert, and oriented x3. No focal deficit. Impressions: 1. Narcolepsy type II. 2. Status post thyroidectomy for Graves' disease. 3. History of heart attack at the age of 26. Plan: 1. Patient will continue treatment with Adderall 20 mg once a day in the morning. 2. Sleep hygiene with regular time in bed for at least 8 hours. 3. Daytime naps permitted 4. Precautions related to driving. No driving if feel any sleepiness. Patient is aware about civil and criminal liability for unsafe driving, promised to follow recommendations. 5. Follow up visit in 4-6 months or earlier if patient has any problems. Thank you very much for allowing me to participate in the management of your patient. Alek Ramirez MD, PhD, FAASM. Diplomat of [place] [employer], Sleep Medicine Board by [employer] [facility] Sm[facility] [place] Objective - Vital Signs Vital Signs: Vital Signs Temp 98.2 F 02/18/24 16:40 Pulse 76 02/18/24 16:40 Resp 16 02/18/24 16:40 BP 111/70 02/18/24 16:40 Pulse Ox 98 02/18/24 16:40 FiO2 Intake & Output 02/17/24 02/18/24 02/18/24 18:59 06:59 18:59 Weight 64.41 kg Home Medications: Home Medications Medication Instructions Recorded Confirmed Type Aspirin [Adult Low Dose Aspirin EC] 81 mg PO DAILY 07/23/21 02/18/24 History Hydroxychloroquine Sulfate 200 mg PO BID 07/23/21 02/18/24 History Levothyroxine Sodium 88 mcg PO DAILY 07/23/21 02/18/24 History Metoprolol Tartrate [Lopressor] 25 mg PO BID 07/23/21 02/18/24 History lisinopriL [Zestril] 5 mg PO DAILY 07/23/21 02/18/24 History Dextroamphetamine/Amphetamine 20 mg PO DAILY 10/18/21 05/28/23 History [Adderall] NIFEdipine [Adalat CC] 30 mg PO DAILY 07/25/22 02/18/24 History Dextroamphetamine/Amphetamine 20 mg PO DAILY 30 Days #30 tab 03/13/23 02/18/24 Rx [Adderall]
== END ==
LOC: 3 N SLEEP 16:29
PROVIDERS: ATTEND Internal Medicine
CPT/HCPCS: 99212

== ENCOUNTER → 2024-05-31 | Outpatient (CLI) | payer BC ==
--- NOTE | 2024-06-01 08:34 | MM ---
Reason for Exam: Screening (asymptomatic). Last screening mammogram was performed 12 month(s) ago. Patient History: Menarche at age 11. First Full-Term at age 25. Progesterone for 3 years from age 42 until age 46. 10/30/2021, Benign MG pre op needle loc LT on the left side. 08/02/2021, High risk Core Biopsy on the left side. Risk Values: Mayuri 5 year model risk: 2.1%. NCI Lifetime model risk: 16.6%. Prior Study Comparison: 07/11/2021 Left Diagnostic Mammogram, [facility]. 05/23/2022 Bilateral MG 3D diag mammo w/cad [facility], [facility]. 05/26/2023 Bilateral MG 3D diag mammo w/cad [facility], [facility]. Tissue Density: The breasts are heterogeneously dense, which may obscure small masses. Findings: Analyzed By CAD. Left breast surgical clips. Right breast: There is no suspicious group of microcalcifications or new suspicious mass. Left breast: There is no suspicious group of microcalcifications or new suspicious mass. Overall Assessment: Benign, BI-RAD 2 Management: Screening Mammogram of both breasts in [address] [facility] will attempt to contact patient to return for supplemental views and ultrasound if indicated. Patient should continue monthly self-breast exams. A clinical breast exam by your physician is recommended on an annual basis. This exam should not preclude additional follow-up of suspicious palpable abnormalities. Note on Mayuri scores and lifetime risk: 1. A Mayuri score greater than 3% is considered moderate risk. If this is the case, consider specialist referral to assess eligibility for a risk reducing agent. 2. If overall lifetime risk for the development of breast cancer is 20% or higher, the patient may qualify for future screening with alternating mammogram and breast MRI. [facility], , 06/01/2024 8:31 AM. Electronically signed and approved by: Ac Hernandez DO
== END | disposition home or self-care (01) ==
LOC: RADMAMWWP 16:09
PROVIDERS: ATTEND Surgery
DX: Z12.31 Encounter for screening mammogram for malignant neoplasm of breast (principal); R92.333 Mammographic heterogeneous density, bilateral breasts
CPT/HCPCS: 77063; 77067

== ENCOUNTER → 2024-08-11 | Outpatient (CLI) | payer BC ==
[2024-08-11 16:17] VITALS: BP 113/73; PULSE 90; RESP 16; TEMP 98.1
--- NOTE | 2024-08-11 16:40 | P.PROGSL ---
Subjective DATE: 08/11/2024 FOLLOW UP VISIT. Patient returned to sleep center for follow-up visit related to treatment of significant excessive daytime sleepiness secondary to narcolepsy. Patient is taking Adderall 20 mg once a day in the morning and reviewed that medications her alertness is on control day side effects. . [place] sleepiness scale is 7, which is in normal range. MEDICATIONS: Please see below During physical exam: GENERAL: A pleasant patient without any distress. VITAL SIGNS: Please see below. HEENT: PERRLA, EOMI. NECK: Supple. No JVD. LUNGS: Clear to percussion and to auscultation. Good air exchange. No wheezing or rhonchi. HEART: S1, S2 regular. ABDOMEN: Soft and nontender. EXTREMITIES: No clubbing or cyanosis. ANNUAL GREENHOUSE MANAGER: Awake, alert, and oriented x3. No focal deficit. Impressions: 1. Narcolepsy type II. 2. History of heart attack at the age of 26. 3. Status post thyroidectomy for Graves' disease. Plan: 1. Patient will continue treatment with Adderall 20 mg once a day in the morning 2. Sleep hygiene with regular time in bed for at least 8 hours. 3. Daytime naps permitted 4. Precautions related to driving. No driving if feel any sleepiness. Patient is aware about civil and criminal liability for unsafe driving, promised to follow recommendations. 5. Follow up visit in 6 months or earlier if patient has any problems. Thank you very much for allowing me to participate in the management of your patient. Alek Ramirez MD, PhD, FAASM. Diplomat of [place] [employer], Sleep Medicine Board by [place] [employer] Cardroom Attendant of [facility] [place] Objective - Vital Signs Vital Signs: Vital Signs Temp 98.1 F 08/11/24 16:16 Pulse 90 08/11/24 16:16 Resp 16 08/11/24 16:16 BP 113/73 08/11/24 16:16 Pulse Ox 99 08/11/24 16:16 FiO2 Intake & Output 08/10/24 08/11/24 08/11/24 18:59 06:59 18:59 Weight 61.689 kg Home Medications: Home Medications Medication Instructions Recorded Confirmed Type Aspirin [Adult Low Dose Aspirin EC] 81 mg PO DAILY 07/23/21 08/11/24 History Hydroxychloroquine Sulfate 200 mg PO DAILY 07/23/21 08/11/24 History Levothyroxine Sodium 88 mcg PO DAILY 07/23/21 08/11/24 History Metoprolol Tartrate [Lopressor] 25 mg PO BID 07/23/21 08/11/24 History lisinopriL [Zestril] 5 mg PO DAILY 07/23/21 08/11/24 History Dextroamphetamine/Amphetamine 20 mg PO DAILY 10/18/21 06/10/24 History [Adderall] NIFEdipine [Adalat CC] 30 mg PO DAILY 07/25/22 08/11/24 History Dextroamphetamine/Amphetamine 20 mg PO DAILY 30 Days #30 tab 03/13/23 08/11/24 Rx [Adderall]
== END ==
LOC: 3 N SLEEP 16:05
PROVIDERS: ATTEND Internal Medicine
DX: G47.419 Narcolepsy without cataplexy (principal); Z86.74 Personal history of sudden cardiac arrest; Z90.89 Acquired absence of other organs
CPT/HCPCS: 99212